=== PATIENT | female | born 1965 | race Caucasian/White ===

== ENCOUNTER 2016-10-13 18:49 | Emergency (ER) | payer OTHER ==
[2016-10-14 00:22] LABS: HEMOGLOBIN 14.7 gm/dl (12.3-15.3); RED BLOOD COUNT 5.07 M/UL (4.00-5.10); WHITE BLOOD COUNT 15.2 K/UL (4.5-11.0)
[2016-10-14 00:28] LABS: BUN/CREATININE RATIO 13 (0-10)
== END 2016-10-14 03:36 | disposition home or self-care (01) ==
LOC: ER1 18:49
PROVIDERS: Student in an Organized Health Care Education/Training Program
DX: R10.32 Left lower quadrant pain (principal); R11.0 Nausea; N18.6 End stage renal disease; Z90.49 Acquired absence of other specified parts of digestive tract; E66.9 Obesity, unspecified
CPT/HCPCS: 36415; 80053; 81001; 83690; 84703; 85025; 96361; 96374; 99284; J2270; J2405

== ENCOUNTER → 2016-11-23 | Outpatient (CLI) | payer OTHER | LOC: KOH-I 11-22 16:00 | DX: R60.0 Localized edema (principal) | CPT/HCPCS: 93971 ==

== ENCOUNTER 2020-12-15 12:20 | Emergency (ER) | payer OTHER ==
[~2020-12-15 12:20] MED LIST: FLEXERIL 10 MG10 MG PO; FLOMAX0.4 MG PO; MYCOSTATIN CREA15 GM TOP; NAPROSYN500 MG PO; NORCO 7.5-3251 EACH PO; TORADOL 10 MG T10 MG PO; ULTRAM50 MG PO; ZOFRAN4 MG PO
[2020-12-15] MEDS ORDERED: MOBIC15 MG PO (16:14)
[2020-12-15] MEDS ORDERED: CYCLOBENZAPRINE5 MG PO (16:14)
== END 2020-12-15 16:35 | disposition home or self-care (01) ==
LOC: ER1 12:20
DX: F32.9 Major depressive disorder, single episode, unspecified (principal); M50.322 Other cervical disc degeneration at C5-C6 level; M25.511 Pain in right shoulder; M25.512 Pain in left shoulder; Z87.442 Personal history of urinary calculi; Z90.49 Acquired absence of other specified parts of digestive tract; Z79.899 Other long term (current) drug therapy
CPT/HCPCS: 72040; 73030; 99284

== ENCOUNTER → 2021-09-24 | Outpatient (CLI) | payer OTHER ==
[~2021-09-24] MED LIST changes: +CYCLOBENZAPRINE5 MG PO; +MOBIC15 MG PO
[2021-09-24 14:51] LABS: HEMOGLOBIN 13.8 gm/dl (12.3-15.3); RED BLOOD COUNT 4.72 M/UL (4.00-5.10); WHITE BLOOD COUNT 8.7 K/UL (4.5-11.0)
[2021-09-24 15:29] LABS: BUN/CREATININE RATIO 13 (0-10)
== END ==
LOC: LAB 14:15
PROVIDERS: Emergency Medicine
DX: R22.43 Localized swelling, mass and lump, lower limb, bilateral (principal); M79.604 Pain in right leg; M79.605 Pain in left leg
CPT/HCPCS: 36415; 71046; 80053; 82550; 83880; 84443; 85025; 85379

== ENCOUNTER → 2021-10-28 | Outpatient (CLI) | payer OTHER | LOC: RAD 14:01 | DX: M54.50 Low back pain, unspecified (principal); M25.551 Pain in right hip; M79.604 Pain in right leg; Z87.442 Personal history of urinary calculi; R14.3 Flatulence | CPT/HCPCS: 72110; 73502; 74022 ==